=== PATIENT | male | born 1995 | race Caucasian/White ===

== ENCOUNTER 2024-12-26 20:38 | Emergency (ER) | payer MEDICAID, OTHER ==
[~2024-12-26] VITALS: Ht 182.9 cm; Wt 72.6 kg
[2024-12-26 22:12] VITALS: BP 132/87; TEMP 98.7
[2024-12-26] MEDS ORDERED: CEPH-570 PO (22:22)
[2024-12-26] MEDS ORDERED: IBUP-1490 PO (22:22)
[2024-12-26] MEDS ORDERED: TDAP [DIPH/PERTUSSIS/TET] 0.5 ML VIAL IM ONE (22:25)
[2024-12-26 22:29] VITALS: O2SAT 99
[2024-12-26] MEDS: TDAP [DIPH/PERTUSSIS/TET] 0.5 ML VIAL IM ONE (22:29)
== END 2024-12-26 22:29 | disposition home or self-care (01) ==
LOC: ER 20:42
DX: L03.032 Cellulitis of left toe (principal); Z60.2 Problems related to living alone
CPT/HCPCS: 90715

== ENCOUNTER 2025-01-24 23:05 | Emergency (ER) | payer MEDICAID ==
[~2025-01-24] VITALS: Ht 182.9 cm; Wt 74.8 kg
[~2025-01-24 23:05] MED LIST: CEPH-570 PO; IBUP-1490 PO
[2025-01-25 01:49] VITALS: BP 128/67; TEMP 98.2; O2SAT 100
[2025-01-25] MEDS ORDERED: CLIN300C12 PO (02:27)
[2025-01-25] MEDS ORDERED: CLOT15CR35 TP (02:27)
== END 2025-01-25 02:31 | disposition home or self-care (01) ==
LOC: ER 23:08
DX: R23.8 Other skin changes (principal); Z79.899 Other long term (current) drug therapy; Z60.2 Problems related to living alone